=== PATIENT | male | born 1965 | race Caucasian/White ===

== ENCOUNTER 2019-09-17 21:35 | Emergency (ER) | payer MEDICAID, SELFPAY ==
[~2019-09-17] VITALS: Ht 170.2 cm; Wt 70.0 kg
[2019-09-17 21:42] VITALS: BP 126/88
--- NOTE | 2019-09-17 21:56 | NUR ---
PT UP AND AMBULATING OUT AMBULANCE DOOR WITH STEADY GAIT, REFUSES TO STAY OR OFFERS OF CAB VOUCHER.
== END 2019-09-17 22:21 | disposition left against medical advice (07) ==
LOC: ED 22:10
DX: F10.220 Alcohol dependence with intoxication, uncomplicated (principal); F17.210 Nicotine dependence, cigarettes, uncomplicated; Y90.0 Blood alcohol level of less than 20 mg/100 ml
CPT/HCPCS: 99406

== ENCOUNTER 2019-09-17 22:51 | Emergency (ER) | payer MEDICAID, SELFPAY ==
[~2019-09-17] VITALS: Ht 170.2 cm; Wt 70.0 kg
[2019-09-17 22:52] VITALS: BP 125/88
--- NOTE | 2019-09-17 22:56 | NUR ---
BIB remsa; bystander found patient unresponsive DT on the ground. Per EMS, patient was sitting upright and AAOx1 to self for them. Pateint was able to tell them he had 1/5 of unknown hard alcohol today. Patient has a small abrasion to the left knee. Patient is in NAD. Respirations even and unlabored.
== END 2019-09-18 00:44 | disposition home or self-care (01) ==
LOC: ED 09-18 00:15
DX: F10.129 Alcohol abuse with intoxication, unspecified (principal); Y90.0 Blood alcohol level of less than 20 mg/100 ml
CPT/HCPCS: 99283